=== PATIENT | male | born 1940 | race Caucasian/White ===

== ENCOUNTER 2018-04-15 02:06 | Observation (INO) | payer BC, MEDICAID, MEDICARE ==
--- NOTE | 2018-04-15 02:22 | ERNOTE ---
ER Male HPI Date of Service: 04/15/18 Stated Complaint: UTI ER Male: other - fever ,right flank ,abd pain,hx of uti Time Seen by Provider: 04/15/18 02:11 Source: [facility] records Exam Limitations: no limitations Immunizations: IMMUNIZATION HX Immunizations Up to Date Yes Allergies/Adverse Reactions: Allergies Penicillins Allergy (Verified 04/15/18 02:28) hives codeine [Codeine] Adverse Reaction (Mild, Verified 04/15/18 02:28) hallucinations morphine Adverse Reaction (Mild, Verified 04/15/18 02:28) hallucinations nalbuphine HCl [From Nubain] Adverse Reaction (Mild, Verified 04/15/18 02:28) hallucinations Home Medications: HOME MEDICATIONS Amiodarone HCl [Pacerone] 200 mg PO DAILY 07/19/12 [Last Taken Unknown] Acetaminophen [Tylenol] 650 mg PO Q4H PRN 08/30/14 [Last Taken Unknown] Cyanocobalamin [Vitamin B-12] 1,000 mcg PO DAILY 08/30/14 [Last Taken Unknown] Donepezil HCl [Aricept] 10 mg PO HS 08/30/14 [Last Taken Unknown] Warfarin Sodium [Coumadin] 3.5 mg PO SUTUWETHFRSA 08/30/14 [Last Taken Unknown] Pantoprazole Sodium [Protonix] 40 mg PO DAILY 10/22/15 [Last Taken Unknown] traZODone HCL [Desyrel] 150 mg PO HS 10/22/15 [Last Taken Unknown] atorvastatin 40 mg tablet 40 mg PO DAILY 12/26/17 [Last Taken Unknown] carbidopa 25 mg-levodopa 100 mg tablet 2.5 tab PO ACHS tab 12/26/17 [Last Taken Unknown] cyclobenzaprine 10 mg tablet 10 mg PO HS tab 12/26/17 [Last Taken Unknown] finasteride 5 mg tablet 5 mg PO DAILY 12/26/17 [Last Taken Unknown] furosemide 40 mg tablet 40 mg PO DAILY tab 12/26/17 [Last Taken Unknown] levothyroxine 75 mcg capsule 75 mcg PO DAILY 12/26/17 [Last Taken Unknown] losartan 50 mg tablet 50 mg PO DAILY 12/26/17 [Last Taken Unknown] methenamine hippurate 1 gram tablet 1 g PO BID 12/26/17 [Last Taken Unknown] methimazole 5 mg tablet 2.5 mg PO DAILY tab 12/26/17 [Last Taken Unknown] multivitamin with iron tablet 1 tab PO DAILY 12/26/17 [Last Taken Unknown] paroxetine 10 mg tablet 10 mg PO DAILY 12/26/17 [Last Taken Unknown] polyvinyl alcohol 1.4 % eye drops 1 drp OP DAILY 12/26/17 [Last Taken Unknown] potassium chloride ER 10 mEq tablet,extended release 10 meq PO BID 12/26/17 [Last Taken Unknown] primidone 50 mg tablet 50 mg PO HS 12/26/17 [Last Taken Unknown] quetiapine 50 mg tablet 50 mg PO HS tab 03/09/18 [Last Taken Unknown] sennosides 8.6 mg-docusate sodium 50 mg tablet 2 tab PO DAILY PRN tab 03/09/18 [Last Taken Unknown] Vit C/E/Zn/Coppr/Lutein/Zeaxan [Preservision Areds 2 Softgel] 1 each PO BID 04/15/18 [Last Taken Unknown] Warfarin Sodium 4 mg PO MO 04/15/18 [Last Taken Unknown] - History of Present Illness Narrative: 77 yr old male sent from [place] for evaluation of fever 102 given tylenol,with hx of frequent UTI,has suprapubic cath,patient states he had right flank and abd pain earlier Date (Duration): 04/15/18 Time (Timing): 13:00 Timing: Present: constant Quality: Present: moderate Onset Location: Present: suprapubic, right flank Radiation: Present: periumbilical Associated Symptoms: Present: fever/chills. Absent: nausea, vomiting Review of Systems - Review of Systems Constitutional: Present: fever EYE: Present: no symptoms reported ENT: Present: no symptoms reported Respiratory: Present: no symptoms reported Cardiology: Present: no symptoms reported Gastrointestinal/Abdominal: Present: abdominal pain Genitourinary: Present: other - suprapubic cath Musculoskeletal: Present: no symptoms reported Skin: Present: no symptoms reported All Other Systems: All systems neg except as marked Medical History (Last Reviewed 04/15/18 @ 02:27 by Karla Koch) Parkinsons disease (Chronic) Onset Date: Unknown Osteoarthritis (Chronic) Onset Date: Unknown Organic brain syndrome (Chronic) Onset Date: Unknown Neurogenic bladder (Chronic) Onset Date: Unknown Insomnia (Chronic) Onset Date: Unknown Essential hypertension (Chronic) Onset Date: Unknown Hyperplasia of prostate (Chronic) Onset Date: Unknown Depression (Chronic) Onset Date: Unknown Controlled diabetes mellitus type II without complication (Chronic) Onset Date: Unknown GERD (gastroesophageal reflux disease) (Chronic) Onset Date: Unknown COPD (chronic obstructive pulmonary disease) (Chronic) Onset Date: Unknown Congestive heart failure (CHF) (Chronic) Onset Date: Unknown Vitamin B12 deficiency (Chronic) Onset Date: Unknown Atrial fibrillation (Chronic) Onset Date: Unknown Arthritis (Chronic) Onset Date: Unknown Anxiety (Chronic) Onset Date: Unknown Surgical History: Surgical History (Last Reviewed 04/15/18 @ 02:27 by Karla Koch) History of cataract surgery Onset Date: ~2011 History of hip replacement Onset Date: ~11/17/05 Family History: Family History (Last Reviewed 03/09/18 @ 13:16 by ABHILASH Degroot) Other unknown Social History: Preferred Language Palau[place] Smoking Status Former smoker Abuse History No History of abuse Psych History No pertinent hx Alcohol Use none Drug Use none (Last Updated 03/28/18 @ 22:28 by Ifeoma Rinaldi DO) No Social History Section defined Physical Exam - Physical Exam General Appearance: Present: wd/wn, alert, no apparent distress Head Exam: Present: normal inspection Eye Exam: Normal inspection: bilateral Ears, Nose, Throat: Present: normal ENT inspection Neck: Present: normal inspection Respiratory: Present: no respiratory distress, normal breath sounds, lungs clear Cardiovascular/Chest: Present: irregularly irregular Peripheral Pulses: N=norm/S=strong/W=weak/B=bound/A=absent: Carotid (R): Normal, Carotid (L): Normal Gastrointestinal/Abdominal: Present: normal bowel sounds, soft, tenderness, other - periumbelical pain Back Exam: Present: normal inspection Extremity Exam: Present: normal inspection Neurological Exam: Present: alert, no motor/sensory deficits ED Progress - Results and Orders Patient's Lab Results:: I have reviewed the patient's lab results. Results and Orders: lactic 2.0 bnp 1038 bun 22 cr 1.53 inr 2.94, alt 277 alt 178 trop < o.o1 wbc 9.3 h/h 11.8/36.2 ua ph8.0 leuk [id number] wbc 10-25 bact 2+ - Vital Signs Patient's Vital Signs:: I have reviewed the patient's vital signs. Vital Signs: Vital Signs 04/15/18 02:08 Temperature 37.9 C Pulse Rate 73 Respiratory Rate 17 Blood Pressure 94/44 O2 Sat by Pulse Oximetry 96 - EKG EKG: NSR EKG read: Interp. by me EKG Comments: hr 74 no acute changes ,no afib - X-Ray X-Ray #1 X-Ray: chest Interpretation: Interp. by me - elevated left vira diaphragm.no acute changes seen. - Progress/Reassessment Chief Complaint: Genitourinary Problem Plan - Plan Plan: discussed with DR Briones will admit obs and begin abx repeat BP 110/43 Departure Clinical Impression: UTI (urinary tract infection) due to urinary indwelling catheter - Departure Disposition: Short Term Hospital Inpatient Condition: Fair Referrals: Ifeoma Rinaldi DO [Primary Care Provider] -
[2018-04-15] MEDS ORDERED: NORMAL SALINE 1,000 ML IV ONE ×2 (02:45→07:43)
[2018-04-15 03:00] LABS: Urine Bilirubin 1 mg/dl (NEGATIVE); Urine Blood Negative /ul (NEGATIVE); Urine Ketone 5 mg/dL (NEGATIVE); Urine Nitrite Negative (NEGATIVE); Urine Protein 15 mg/dL (NEGATIVE)
[2018-04-15 03:18] LABS: Hematocrit 36.2 % (42.0-52.0); Hemoglobin 11.8 gm/dL (13.5-18.0); Mean Cell Volume 99.5 fl (78-100); Mean Corpuscular Hemoglobin 32.4 pg (27-31); Mean Corpuscular Hgb Conc 32.6 g/dl (32-36); Neutrophil # 8.3 K/mm3 (1.3-6.0); Neutrophil % 89.2 % (42-75.0); Platelet Count 108 K/mm3 (150-450); Red Blood Count 3.64 M/mm3 (4.7-6.0); Red Cell Distribution Width 13.1 % (11.5-14.0); White Blood Count 9.3 K/mm3 (4.0-10.5)
[2018-04-15 03:21] LABS: Urine Appearance Clear (CLEAR); Urine Bacteria 2+; Urine Color Dark Yellow; Urine RBC None Seen /hpf (0-5)
[2018-04-15 03:28] LABS: Prothrombin Time (Patient) 29.7 Seconds (9.0-11.0)
[2018-04-15] MEDS ORDERED: LEVOFLOXACIN IN DEXTROSE 5 % 750 MG/150 ML BAG IV ONE (03:30)
[2018-04-15 03:31] LABS: INR 2.94 INR (0.90-1.10); Partial Thrombolplastin Time 35.2 Seconds (24-32)
[2018-04-15 03:38] LABS: Troponin I Less than 0.017 ng/mL (0.00-0.10)
[2018-04-15 03:40] LABS: ALT 178 U/L (19-67); AST 277 U/L (0-48); Albumin * 3.1 gm/dl (3.4-5.0); Alkaline Phosphatase * 223 U/L (50-170); Anion Gap 11.9 mmol/L (6.8-13.8); BNP * 1031 pg/mL (5-650); BUN/Creatinine Ratio 14.4 (9.0-21.6); Bilirubin, Total 1.5 mg/dL (0.0-1.1); Blood Urea Nitrogen 22 mg/dL (6-23); Ca. Corrected For Albumin 8.3 mg/dL (8.4-10.2); Calcium * 7.9 mg/dL (7.9-10.9); Carbon Dioxide 30.6 mmol/L (24-32.6); Chloride 102 mmol/L (97-106); Glucose * 123 mg/dL (70-110); Potassium 3.5 mmol/L (3.4-4.6); Sodium 141 mmol/L (132-142); Total Protein 6.8 gm/dL (6.2-8.2)
[2018-04-15] MEDS ORDERED: NORMAL SALINE 1,000 ML IV PRN (07:44)
[2018-04-15] MEDS ORDERED: ACETAMINOPHEN 325 MG TABLET PO PRN (09:01)
[2018-04-15] MEDS ORDERED: SENNOSIDES/DOCUSATE SODIUM 1 TAB TABLET PO PRN (09:01)
[2018-04-15] MEDS ORDERED: FINASTERIDE 5 MG TABLET PO SCH (09:15)
[2018-04-15] MEDS ORDERED: AMIODARONE HCL 200 MG TABLET PO SCH (09:15)
[2018-04-15] MEDS ORDERED: POLYVINYL ALCOHOL 150 DROP BTL OP SCH (09:15)
[2018-04-15] MEDS ORDERED: METHIMAZOLE 10 MG TABLET PO SCH (09:30)
[2018-04-15] MEDS ORDERED: METHENAMINE MANDELATE 1 GM TABLET PO SCH (09:30)
[2018-04-15] MEDS ORDERED: MULTIVITAMINS 1 CAP CAPSULE PO SCH (09:30)
[2018-04-15] MEDS ORDERED: BETA-CAROTENE(A) W-C , E/MIN 1 TAB TABLET PO SCH (09:30)
[2018-04-15] MEDS ORDERED: PANTOPRAZOLE SODIUM 40 MG TABLET.EC PO SCH (09:30)
[2018-04-15] MEDS ORDERED: CARBIDOPA/LEVODOPA 25/100 1 TAB TABLET PO SCH (11:00)
[2018-04-15 11:15] LABS: Albumin * 2.7 gm/dl (3.4-5.0); Anion Gap 9.3 mmol/L (6.8-13.8); BUN/Creatinine Ratio 14.1 (9.0-21.6); Bilirubin Direct 0.6 mg/dL (0.0-0.3); Bilirubin,Indirect 0.4 mg/dL (0.1-0.7); Calcium * 7.4 mg/dL (7.9-10.9); Carbon Dioxide 30.8 mmol/L (24-32.6); Estimated Creat Clear 46.2; Potassium 4.1 mmol/L (3.4-4.6); Total Protein 6.3 gm/dL (6.2-8.2)
--- NOTE | 2018-04-15 12:50 | DS ---
<Jordan Hanna - Last Filed: 04/18/18 05:29> Results and Findings: Pending Mircobiology Results 04/15/18 03:00 Blood Blood Culture - Preliminary Streptococcus Species 04/15/18 03:10 Blood Blood Culture - Preliminary Streptococcus Species Lab Pending Results 04/15/18 02:21: Urine Color Dark yellow, Urine Appearance Clear, Urine pH 8.0 H, Ur Specific [place] 1.010, Urine Protein 15 H, Urine Glucose (UA) Negative, Urine Ketones 5, Urine Blood Negative, Urine Nitrate Negative, Urine Bilirubin 1 H, Urine Ictotest Negative, Prot Sulfosalicylic Acd Negative, Urine Urobilinogen 2.0 H, Ur Leukocyte Esterase 100 H, Urine RBC None seen, Urine WBC 10-25 H, Ur Epithelial Cells 0-5, Urine Bacteria 2+ H, Urine Culture Comments Culture to follow 04/15/18 03:10: WBC 9.3, RBC 3.64 L, Hgb 11.8 L, Hct 36.2 L, MCV 99.5, MCH 32.4 H, MCHC 32.6, RDW 13.1, Plt Count 108 L, MPV 10.0, Immature Gran % (Auto) 0.50 H, Immature Gran # (Auto) 0.05 H, Neutrophils % 89.2 H, Lymphocytes % 2.1 L, Monocytes % 8.0, Eosinophils % 0.1, Basophils % 0.1, Nucleated RBC % 0.0, Neutrophils # 8.3 H, Lymphocytes # 0.20 L, Monocytes # 0.8, Eosinophils # 0.0, Absolute Basophils 0.0 04/15/18 03:10: PT 29.7 H, INR (Anticoag Therapy) 2.94 H, PTT ([place]) 35.2 H 04/15/18 03:10: Sodium 141, Plasma Sodium 141, Potassium 3.5, Chloride 102, Carbon Dioxide 30.6, Anion Gap 11.9, BUN 22, Creatinine 1.53 H, Est GFR (Non-Af Amer) 47 L D, BUN/Creatinine Ratio 14.4, Random Glucose 123 H, Calcium 7.9, Calcium Adj for Albumin 8.3 L, Total Bilirubin 1.5 H, AST 277 H, ALT 178 H, Alkaline Phosphatase 223 H, Troponin I Less than 0.017, B-Natriuretic Peptide 1031 H, Total Protein 6.8, Albumin 3.1 L 04/15/18 03:10: Lactic Acid, Venous 2.0 04/15/18 03:10: B-Natriuretic Peptide 1038 H 04/15/18 05:21: Lactic Acid, Venous 1.7 04/15/18 10:54: Sodium 140, Plasma Sodium 140, Potassium 4.1, Chloride 104, Carbon Dioxide 30.8, Anion Gap 9.3, BUN 21, Creatinine 1.49 H, Est GFR (Non-Af Amer) 48 L, BUN/Creatinine Ratio 14.1, Random Glucose 87, Calcium 7.4 L, Total Bilirubin 1.0, Direct Bilirubin 0.6 H, Indirect Bilirubin 0.4, AST 107 H, ALT 205 H, Alkaline Phosphatase 192 H, Total Protein 6.3, Albumin 2.7 L Disposition: Intermediate Care Facility ICF Condition: Stable Referrals: Ifeoma Rinaldi DO [Primary Care Provider] - Problem Oriented Discharge Instructions to Patient/Family: Dysuria Additional Patient Instructions (free text): -Dr. Rinaldi will see the patient tomorrow AM at [facility] Complete Home Medications List: Complete Home Medication List: Amiodarone HCl [Pacerone] 200 mg PO DAILY 07/19/12 Acetaminophen [Tylenol] 650 mg PO Q4H PRN 08/30/14 Cyanocobalamin [Vitamin B-12] 1,000 mcg PO DAILY 08/30/14 Donepezil HCl [Aricept] 10 mg PO HS 08/30/14 Warfarin Sodium [Coumadin] 3.5 mg PO SUTUWETHFRSA 08/30/14 Pantoprazole Sodium [Protonix] 40 mg PO DAILY 10/22/15 atorvastatin 40 mg tablet 40 mg PO DAILY 12/26/17 carbidopa 25 mg-levodopa 100 mg tablet 2.5 tab PO ACHS tab 12/26/17 cyclobenzaprine 10 mg tablet 10 mg PO HS tab 12/26/17 finasteride 5 mg tablet 5 mg PO DAILY 12/26/17 furosemide 40 mg tablet 40 mg PO DAILY tab 12/26/17 levothyroxine 75 mcg capsule 75 mcg PO DAILY 12/26/17 losartan 50 mg tablet 50 mg PO DAILY 12/26/17 methenamine hippurate 1 gram tablet 1 g PO BID 12/26/17 methimazole 5 mg tablet 2.5 mg PO DAILY tab 12/26/17 multivitamin with iron tablet 1 tab PO DAILY 12/26/17 paroxetine 10 mg tablet 10 mg PO DAILY 12/26/17 polyvinyl alcohol 1.4 % eye drops 1 drp OP DAILY 12/26/17 potassium chloride ER 10 mEq tablet,extended release 10 meq PO BID 12/26/17 primidone 50 mg tablet 50 mg PO HS 12/26/17 quetiapine 50 mg tablet 50 mg PO HS tab 03/09/18 Vit C/E/Zn/Coppr/Lutein/Zeaxan [Preservision Areds 2 Softgel] 1 each PO BID 04/15/18 Warfarin Sodium 4 mg PO MO 04/15/18 fluticasone furoate 27.5 mcg/actuation nasal spray,suspension 2 spray SHAMIR DAILY #18.2 ml 04/27/18 melatonin 5 mg tablet 5 mg PO HS #30 tab 04/27/18 sennosides 8.6 mg-docusate sodium 50 mg tablet 2 tab PO DAILY tab 04/27/18 sennosides 8.6 mg-docusate sodium 50 mg tablet 2 tab PO DAILY PRN 04/27/18 trazodone 150 mg tablet 150 mg PO HS 04/27/18 <Ifeoma Rinaldi - Last Filed: 04/29/18 06:45> (1) UTI (urinary tract infection) due to urinary indwelling catheter Problem: Acute (2) Elevated LFTs Problem: Acute (3) Epigastric pain Problem: Acute (4) Suprapubic pain Problem: Acute (5) Parkinsons disease Problem: Chronic Description of Stay: HOSPITAL COURSE: The patient was admitted for a UTI and was started on treatment with IV levaquin. The patient was stable the following am for discharge and he was discharged back to his [facility] care facility at [facility]. We will treat the patient with levaquin for a total of 5 days. Final urine C&S still pending at the time of discharge but we will continue to follow the results until finalized and make sure the bacteria is sensitive to levaquin and if not, we will adjust the antibiotics as necessary. Procedures Performed: none Results and Findings: Lab Pending Results 04/15/18 02:21: Urine Color Dark yellow, Urine Appearance Clear, Urine pH 8.0 H, Ur Specific [place] 1.010, Urine Protein 15 H, Urine Glucose (UA) Negative, Urine Ketones 5, Urine Blood Negative, Urine Nitrate Negative, Urine Bilirubin 1 H, Urine Ictotest Negative, Prot Sulfosalicylic Acd Negative, Urine Urobilinogen 2.0 H, Ur Leukocyte Esterase 100 H, Urine RBC None seen, Urine WBC 10-25 H, Ur Epithelial Cells 0-5, Urine Bacteria 2+ H, Urine Culture Comments Culture to follow 04/15/18 03:10: WBC 9.3, RBC 3.64 L, Hgb 11.8 L, Hct 36.2 L, MCV 99.5, MCH 32.4 H, MCHC 32.6, RDW 13.1, Plt Count 108 L, MPV 10.0, Immature Gran % (Auto) 0.50 H, Immature Gran # (Auto) 0.05 H, Neutrophils % 89.2 H, Lymphocytes % 2.1 L, Monocytes % 8.0, Eosinophils % 0.1, Basophils % 0.1, Nucleated RBC % 0.0, Neutrophils # 8.3 H, Lymphocytes # 0.20 L, Monocytes # 0.8, Eosinophils # 0.0, Absolute Basophils 0.0 04/15/18 03:10: PT 29.7 H, INR (Anticoag Therapy) 2.94 H, PTT ([place]) 35.2 H 04/15/18 03:10: Sodium 141, Plasma Sodium 141, Potassium 3.5, Chloride 102, Carbon Dioxide 30.6, Anion Gap 11.9, BUN 22, Creatinine 1.53 H, Est GFR (Non-Af Amer) 47 L D, BUN/Creatinine Ratio 14.4, Random Glucose 123 H, Calcium 7.9, Calcium Adj for Albumin 8.3 L, Total Bilirubin 1.5 H, AST 277 H, ALT 178 H, Alkaline Phosphatase 223 H, Troponin I Less than 0.017, B-Natriuretic Peptide 1031 H, Total Protein 6.8, Albumin 3.1 L 04/15/18 03:10: Lactic Acid, Venous 2.0 04/15/18 03:10: B-Natriuretic Peptide 1038 H 04/15/18 05:21: Lactic Acid, Venous 1.7 04/15/18 10:54: Sodium 140, Plasma Sodium 140, Potassium 4.1, Chloride 104, Carbon Dioxide 30.8, Anion Gap 9.3, BUN 21, Creatinine 1.49 H, Est GFR (Non-Af Amer) 48 L, BUN/Creatinine Ratio 14.1, Random Glucose 87, Calcium 7.4 L, Total Bilirubin 1.0, Direct Bilirubin 0.6 H, Indirect Bilirubin 0.4, AST 107 H, ALT 205 H, Alkaline Phosphatase 192 H, Total Protein 6.3, Albumin 2.7 L Discharge Location: [facility] Level of Care: ICF Discharge Activity: Activity as tolerated Discharge Diet: Resume usual diet
[2018-04-15 15:17] VITALS: BP 128/54
[2018-04-15] MEDS ORDERED: WARFARIN SODIUM 1 MG TABLET PO SCH (17:00)
[2018-04-15] MEDS ORDERED: PRIMIDONE 50 MG TABLET PO SCH (21:00)
[2018-04-15] MEDS ORDERED: QUEtiapine FUMARATE 25 MG TABLET PO SCH (21:00)
[2018-04-15] MEDS ORDERED: CYCLOBENZAPRINE HCL 10 MG TABLET PO SCH (21:00)
[2018-04-15] MEDS ORDERED: traZODone HCL 150 MG TABLET PO SCH (21:00)
[2018-04-15] MEDS ORDERED: DONEPEZIL HCL 10 MG TABLET PO SCH (21:00)
[2018-04-16] MEDS ORDERED: CYANOCOBALAMIN 1,000 MCG TABLET PO SCH (09:00)
--- NOTE | 2018-04-16 18:56 | HP ---
Chief Complaint - Chief Complaint Date of Service: 04/15/18 Time of Service: 08:50 Chief Complaint: Not feeling well History of Present Illness: The patient is a residential resident with Parkinson's Disease that lives at [facility] and presented to the ED with multiple complaints stating he felt unwell and it has progressively gotten worse over the past 24 hours. He states he started noticing he felt fevered and chilled off and on. He felted nauseated and vomited a couple of times. He states he has some pain in his mid upper abdomen and also in his suprapubic region. He admits to having a decreased appetite and he admits that he has not been drinking enough fluids. However, this AM at the time of my exam, he states that he is feeling better and feels "not too bad." Medical History (Last Reviewed 04/15/18 @ 06:42 by Joie Michelle RN) Parkinsons disease (Chronic) Onset Date: Unknown Osteoarthritis (Chronic) Onset Date: Unknown Organic brain syndrome (Chronic) Onset Date: Unknown Neurogenic bladder (Chronic) Onset Date: Unknown Insomnia (Chronic) Onset Date: Unknown Essential hypertension (Chronic) Onset Date: Unknown Hyperplasia of prostate (Chronic) Onset Date: Unknown Depression (Chronic) Onset Date: Unknown Controlled diabetes mellitus type II without complication (Chronic) Onset Date: Unknown GERD (gastroesophageal reflux disease) (Chronic) Onset Date: Unknown COPD (chronic obstructive pulmonary disease) (Chronic) Onset Date: Unknown Congestive heart failure (CHF) (Chronic) Onset Date: Unknown Vitamin B12 deficiency (Chronic) Onset Date: Unknown Atrial fibrillation (Chronic) Onset Date: Unknown Arthritis (Chronic) Onset Date: Unknown Anxiety (Chronic) Onset Date: Unknown Surgical History: Surgical History (Last Reviewed 04/15/18 @ 06:42 by Joie Michelle RN) History of cataract surgery Onset Date: ~2011 History of hip replacement Onset Date: ~11/17/05 Family History: Family History (Last Updated 04/15/18 @ 06:43 by Joie Michelle RN) Other No known problems Social History: Patient Lives/Resources [facility] Utilized Occupation [employer] Preferred Language Citizen Of [place] Do you have any islam or Yes: Adventist cultural preference? Smoking Status Never smoker Have you smoked in the past 12 No months Abuse History No History of abuse Psych History No pertinent hx Alcohol Use none Drug Use none (Last Updated 03/28/18 @ 22:28 by Ifeoma Rinaldi DO) No Social History Section defined Review Of Systems (GEN) - Review of Systems Generalized/Overall Review: Present: Weakness, Fatigue Respiratory: Present: No Symptoms Reported Cardiac: Present: No Symptoms Reported Abdominal: Present: Nausea, Abdominal Pain. Absent: Vomiting, Hematemesis, Constipation, Diarrhea, Bright blood from rectum Genitourinary: Present: Other - suprapubic catheter Misc: All systems neg except as marked Immunizations: IMMUNIZATION HX Immunizations Up to Date Yes Allergies/Adverse Reactions: Allergies Allergy/AdvReac Type Severity Reaction Status Date / Time Penicillins Allergy hives Verified 04/15/18 06:44 codeine [Codeine] AdvReac Mild hallucinati Verified 04/15/18 06:44 ons morphine AdvReac Mild hallucinati Verified 04/15/18 06:44 ons nalbuphine HCl [From Nubain] AdvReac Mild hallucinati Verified 04/15/18 06:44 ons Home Medications: HOME MEDICATIONS Amiodarone HCl [Pacerone] 200 mg PO DAILY 07/19/12 [Last Taken Unknown] Acetaminophen [Tylenol] 650 mg PO Q4H PRN 08/30/14 [Last Taken Unknown] Cyanocobalamin [Vitamin B-12] 1,000 mcg PO DAILY 08/30/14 [Last Taken Unknown] Donepezil HCl [Aricept] 10 mg PO HS 08/30/14 [Last Taken Unknown] Warfarin Sodium [Coumadin] 3.5 mg PO [id number] 08/30/14 [Last Taken Unknown] Pantoprazole Sodium [Protonix] 40 mg PO DAILY 10/22/15 [Last Taken Unknown] traZODone HCL [Desyrel] 150 mg PO HS 10/22/15 [Last Taken Unknown] atorvastatin 40 mg tablet 40 mg PO DAILY 12/26/17 [Last Taken Unknown] carbidopa 25 mg-levodopa 100 mg tablet 2.5 tab PO ACHS tab 12/26/17 [Last Taken Unknown] cyclobenzaprine 10 mg tablet 10 mg PO HS tab 12/26/17 [Last Taken Unknown] finasteride 5 mg tablet 5 mg PO DAILY 12/26/17 [Last Taken Unknown] furosemide 40 mg tablet 40 mg PO DAILY tab 12/26/17 [Last Taken Unknown] levothyroxine 75 mcg capsule 75 mcg PO DAILY 12/26/17 [Last Taken Unknown] losartan 50 mg tablet 50 mg PO DAILY 12/26/17 [Last Taken Unknown] methenamine hippurate 1 gram tablet 1 g PO BID 12/26/17 [Last Taken Unknown] methimazole 5 mg tablet 2.5 mg PO DAILY tab 12/26/17 [Last Taken Unknown] multivitamin with iron tablet 1 tab PO DAILY 12/26/17 [Last Taken Unknown] paroxetine 10 mg tablet 10 mg PO DAILY 12/26/17 [Last Taken Unknown] polyvinyl alcohol 1.4 % eye drops 1 drp OP DAILY 12/26/17 [Last Taken Unknown] potassium chloride ER 10 mEq tablet,extended release 10 meq PO BID 12/26/17 [Last Taken Unknown] primidone 50 mg tablet 50 mg PO HS 12/26/17 [Last Taken Unknown] quetiapine 50 mg tablet 50 mg PO HS tab 03/09/18 [Last Taken Unknown] sennosides 8.6 mg-docusate sodium 50 mg tablet 2 tab PO DAILY PRN tab 03/09/18 [Last Taken Unknown] Levofloxacin [Levaquin] 500 mg PO DAILY 4 Days #4 tablet 04/15/18 [Last Taken Unknown] Vit C/E/Zn/Coppr/Lutein/Zeaxan [Preservision Areds 2 Softgel] 1 each PO BID 04/15/18 [Last Taken Unknown] Warfarin Sodium 4 mg PO MO 04/15/18 [Last Taken Unknown] Exam - Exam Vital Signs: Vital Signs - Last Taken Temp 37.3 C 04/15/18 15:15 Pulse 63 04/15/18 15:15 Resp 17 04/15/18 15:15 BP 128/54 04/15/18 15:15 Pulse Ox 95 04/15/18 15:15 Constitutional: Present: Alert, Oriented x3, Cooperative, No distress, Elderly, Thin and frail ENT Exam: Present: hearing grossly normal, dry mucous membranes Back Exam: Present: no CVA tenderness Respiratory: Present: lungs clear, normal breath sounds, no respiratory distress, no accessory muscle use, decreased breath sounds Cardiovascular/Chest: Present: regular rate, rhythm Abdomen: Present: soft, nondistended, tender - Mild TTP over epigastric and RUQ areas. Absent: guarding, rigidity, rebound tenderness, CVA tenderness, positive Salazar sign Extremity: Present: no pedal edema Skin Exam: Present: normal color, warm/dry Neurologic: Present: alert, normal mood/affect, oriented x 3. Absent: other - Severe muscle atrophy noted diffusely but easily noted in his hands bilaterally Appearance: Present: appropriate insight Eye contact: Present: cooperative, good eye contact, decreased rate of speech Thoughts: Present: normal thought pattern, no apparent hallucination Diagnostic Studies: Microbiology 04/15/18 08:19 - Final Nares MRSA Positive 04/15/18 02:21 Urine Culture - Preliminary Urine,Catheterized Gram Negative Bacilli Gram Negative Bacilli#2 04/15/18 03:00 Blood Culture - Preliminary Blood Ruling Out Pathogen 04/15/18 03:10 Blood Culture - Preliminary Blood Ruling Out Pathogen Laboratory Results WBC 9.3 K/mm3 (4.0-10.5) 04/15/18 03:10 RBC 3.64 M/mm3 (4.7-6.0) L 04/15/18 03:10 Hgb 11.8 gm/dL (13.5-18.0) L 04/15/18 03:10 Hct 36.2 % (42.0-52.0) L 04/15/18 03:10 MCV 99.5 fl (78-100) 04/15/18 03:10 MCH 32.4 pg (27-31) H 04/15/18 03:10 MCHC 32.6 g/dl (32-36) 04/15/18 03:10 RDW 13.1 % (11.5-14.0) 04/15/18 03:10 Plt Count 108 K/mm3 (150-450) L 04/15/18 03:10 MPV 10.0 fl (8-11.3) 04/15/18 03:10 Immature Gran % (Auto) 0.50 % (0.001-0.429) H 04/15/18 03:10 Immature Gran # (Auto) 0.05 K/mm3 (0.000-0.0310) H 04/15/18 03:10 Neutrophils % 89.2 % (42-75.0) H 04/15/18 03:10 Lymphocytes % 2.1 % (20-51) L 04/15/18 03:10 Monocytes % 8.0 % (0.0-9) 04/15/18 03:10 Eosinophils % 0.1 % (0.0-3.0) 04/15/18 03:10 Basophils % 0.1 % (0.0-1.0) 04/15/18 03:10 Nucleated RBC % 0.0 k/mm3 (0-1) 04/15/18 03:10 Neutrophils # 8.3 K/mm3 (1.3-6.0) H 04/15/18 03:10 Lymphocytes # 0.20 k/mm3 (1.5-3.5) L 04/15/18 03:10 Monocytes # 0.8 k/mm3 (0.0-1.0) 04/15/18 03:10 Eosinophils # 0.0 k/mm3 (0.0-0.7) 04/15/18 03:10 Absolute Basophils 0.0 k/mm3 (0.0-0.1) 04/15/18 03:10 PT 29.7 Seconds (9.0-11.0) H 04/15/18 03:10 INR (Anticoag Therapy) 2.94 INR (0.90-1.10) H 04/15/18 03:10 PTT ([place]) 35.2 Seconds (24-32) H 04/15/18 03:10 Sodium 140 mmol/L (132-142) 04/15/18 10:54 Plasma Sodium 140 mmol/L (130-142) 04/15/18 10:54 Potassium 4.1 mmol/L (3.4-4.6) 04/15/18 10:54 Chloride 104 mmol/L (97-106) 04/15/18 10:54 Carbon Dioxide 30.8 mmol/L (24-32.6) 04/15/18 10:54 Anion Gap 9.3 mmol/L (6.8-13.8) 04/15/18 10:54 BUN 21 mg/dL (6-23) 04/15/18 10:54 Creatinine 1.49 mg/dL (0.4-1.4) H 04/15/18 10:54 Est GFR (Non-Af Amer) 48 mL/min (60-130) L 04/15/18 10:54 BUN/Creatinine Ratio 14.1 (9.0-21.6) 04/15/18 10:54 Random Glucose 87 mg/dL (70-110) 04/15/18 10:54 Lactic Acid, Venous 1.7 mmol/L (0.4-2.0) 04/15/18 05:21 Calcium 7.4 mg/dL (7.9-10.9) L 04/15/18 10:54 Calcium Adj for Albumin 8.3 mg/dL (8.4-10.2) L 04/15/18 03:10 Total Bilirubin 1.0 mg/dL (0.0-1.1) 04/15/18 10:54 Direct Bilirubin 0.6 mg/dL (0.0-0.3) H 04/15/18 10:54 Indirect Bilirubin 0.4 mg/dL (0.1-0.7) 04/15/18 10:54 AST 107 U/L (0-48) H 04/15/18 10:54 ALT 205 U/L (19-67) H 04/15/18 10:54 Alkaline Phosphatase 192 U/L (50-170) H 04/15/18 10:54 Troponin I Less than 0.017 ng/mL (0.00-0.10) 04/15/18 03:10 B-Natriuretic Peptide 1038 pg/mL (5-650) H 04/15/18 03:10 Total Protein 6.3 gm/dL (6.2-8.2) 04/15/18 10:54 Albumin 2.7 gm/dl (3.4-5.0) L 04/15/18 10:54 Urine Color Dark yellow 04/15/18 02:21 Urine Appearance Clear (CLEAR) 04/15/18 02:21 Urine pH 8.0 pH (5.0-7.0) H 04/15/18 02:21 Ur Specific [place] 1.010 SP.GR. (1.005-1.030) 04/15/18 02:21 Urine Protein 15 mg/dL (NEGATIVE) H 04/15/18 02:21 Urine Glucose (UA) Negative mg/dL (NEGATIVE) 04/15/18 02:21 Urine Ketones 5 mg/dL (NEGATIVE) 04/15/18 02:21 Urine Blood Negative /ul (NEGATIVE) 04/15/18 02:21 Urine Nitrate Negative (NEGATIVE) 04/15/18 02:21 Urine Bilirubin 1 mg/dl (NEGATIVE) H 04/15/18 02:21 Urine Ictotest Negative (NEGATIVE) 04/15/18 02:21 Prot Sulfosalicylic Acd Negative mg/dL (0) 04/15/18 02:21 Urine Urobilinogen 2.0 EU/dl (NORMAL) H 04/15/18 02:21 Ur Leukocyte Esterase 100 /ul (NEGATIVE) H 04/15/18 02:21 Urine RBC None seen /hpf (0-5) 04/15/18 02:21 Urine WBC 10-25 /hpf (0-5) H 04/15/18 02:21 Ur Epithelial Cells 0-5 /hpf (0-5) 04/15/18 02:21 Urine Bacteria 2+ (NONE) H 04/15/18 02:21 Urine Culture Comments Culture to follow 04/15/18 02:21 Assessment/Plan - Narrative Narrative: Patient c/o epigastric and suprapubic pain. LFTs elevated. Possibly related to poor perfusion due to hypotension. Hypotension improved and resolved with IVFs. However, patient does still have his gallbladder so we will get an abdominal ultrasound prior to discharge. WBC count WNL. Patient afebrile entire time in hospital. We will plan to discharge the patient back to the halfway on oral levaquin, encourage good PO fluid intake and recheck labs on Wednesday. - Assessment/Plan (1) UTI (urinary tract infection) due to urinary indwelling catheter Problem: Acute (2) Elevated LFTs Problem: Acute (3) Epigastric pain Problem: Acute (4) Suprapubic pain Problem: Acute (5) Parkinsons disease Problem: Chronic
[2018-04-16] MEDS ORDERED: ROSUVASTATIN CALCIUM 20 MG TABLET PO SCH (21:00)
[2018-04-18] MEDS ORDERED: WARFARIN SODIUM 4 MG TABLET PO SCH (17:00)
== END 2018-04-15 15:30 ==
LOC: MS 02:06 → ER 02:06 → MS 04:40
PROVIDERS: ADMIT Family Medicine; ATTEND Internal Medicine
DX: Z22.322 Carrier or suspected carrier of Methicillin resistant Staphylococcus aureus; B96.89 Other specified bacterial agents as the cause of diseases classified elsewhere; R94.5 Abnormal results of liver function studies; N39.0 Urinary tract infection, site not specified; E11.9 Type 2 diabetes mellitus without complications; Z79.01 Long term (current) use of anticoagulants; Y73.8 Miscellaneous gastroenterology and urology devices associated with adverse incidents, not elsewhere classified; G20 Parkinson's disease; T83.518A Infection and inflammatory reaction due to other urinary catheter, initial encounter; I48.2 Chronic atrial fibrillation; I10 Essential (primary) hypertension
CPT/HCPCS: 36415; 71010; 71045; 76700; 80048; 80053; 80076; 81001; 83519; 83605; 83880; 84484; 85025; 85610; 85730; 87040; 87077; 87081; 87086; 87186; 93005; 96361; 96365; 96366; 99284; G0378